=== PATIENT | female | born 1940 | race Caucasian/White ===

== ENCOUNTER 2017-12-04 07:46 | Inpatient (IN) | payer MEDICARE, MEDICAID ==
[2017-12-03 15:24] LABS: BASOPHILS # (AUTO) 0.1 X10'3 (0-0.2); BASOPHILS % (AUTO) 1.3 % (0-1); EOSINOPHILS # (AUTO) 0.2 X10'3 (0-0.9); EOSINOPHILS % (AUTO) 3.3 % (0-6); LYMPHOCYTES # (AUTO) 1.4 X10'3 (1.1-4.8); LYMPHOCYTES % (AUTO) 21.9 % (21-51); MEAN CORPUSCULAR HEMOGLOBIN 30.6 PG (27.0-31.0); MEAN CORPUSCULAR HGB CONC 32.7 % (33.0-36.5); MEAN CORPUSCULAR VOLUME 93.8 FL (78-98); MEAN PLATELET VOLUME 7.8 FL (7.4-10.4); MONOCYTES # (AUTO) 0.5 X10'3 (0-0.9); MONOCYTES % (AUTO) 7.8 % (2-12); NEUTROPHILS # (AUTO) 4.2 X10'3 (1.8-7.7); NEUTROPHILS % (AUTO) 65.7 % (42-75); PRE OP HEMATOCRIT 42.2 % (35.0-45.0); PRE OP HEMOGLOBIN 13.8 g/dL (12.0-16.0); PRE OP PLATELET COUNT 212 X10'3 (140-440); RED CELL DISTRIBUTION WIDTH 14.6 % (11.5-14.5)
[2017-12-03 15:40] LABS: ALBUMIN 3.7 G/DL (3.4-5.0); ALKALINE PHOSPHATASE 80 IU/L (46-116); BLOOD UREA NITROGEN 17 MG/DL (7-18); BUN/CREATININE RATIO 15.7 (6.6-38.0); CHLORIDE 107 MMOL/L (99-107); CREATININE 1.08 MG/DL (0.40-0.90); PRE OP ALT 18 U/L (30-65); PRE OP ANION GAP 9 (8-16); PRE OP AST 11 U/L (10-37); PRE OP BILIRUB, TOTAL 0.5 MG/DL (0.0-1.0); PRE OP GLUCOSE 121 MG/DL (70-104); PRE OP POTASSIUM 3.8 MMOL/L (3.4-5.1); PRE OP SODIUM 144 MMOL/L (135-145); TOTAL CARBON DIOXIDE 27.7 MMOL/L (24-32); TOTAL PROTEIN 7.3 G/DL (6.4-8.2); eGFR 49 ML/MIN
[2017-12-03 15:42] LABS: PRE OP PROTIME 10.8 SECONDS (9.0-12.0)
[2017-12-04] VITALS (22 sets, daily range): BP systolic 83–122; BP diastolic 52–74
[~2017-12-04] VITALS: Ht 154.9 cm; Wt 87.7 kg
[~2017-12-04 07:46] MED LIST: AMLO5TAB PO; CHOL100046 PO; IBUP-24 PO; LISI40TA4 PO; MAGN400C PO; METF-436 PO; TOPI50TA PO; acetaminophen 325mg tablet PO ONE; cefazolin/dext.iso 2gm/100 ML IV ONE; famotidine 20mg tablet PO ONE; gabapentin 300mg capsule PO ONE; metoclopramide 5 mg/ml inj IV ONE; oxyCODONE SR 10mg (sust. release) tab PO ONE; ringers solution, lacted 1,000 ML IV SCH; tranexamic acid inj. 1,000 MG in normal saline 100ml IV soln 90 ML IV ONE; vancomycin inj 1,500 MG in normal saline 300ml IV soln IV ONE
[2017-12-04] MEDS ORDERED: vancomycin 1,000mg inj ONE (08:00)
[2017-12-04] MEDS ORDERED: ceFAZolin 1000mg inj ONE ×2 (08:00→10:23)
[2017-12-04] MEDS ORDERED: LIDOcaine 1% (10mg/ml) 2ml vial ONE (08:53)
[2017-12-04] MEDS ORDERED: tetracaine 1% (10mg/ml) pres. free inj. ONE (09:21)
[2017-12-04] MEDS ORDERED: morphine /PF 1mg/ml 10ml inj. ONE (09:26)
[2017-12-04] MEDS ORDERED: MIDAZolam 1mg/ml 10ml vial ONE (09:26)
[2017-12-04] MEDS ORDERED: fentaNYL/PF 50MCG/1 ML 2ML syringe ONE (09:26)
[2017-12-04] MEDS ORDERED: ROPIVAcaine inj 200 MG, epiNEPHrine inj 0.6 MG, morphine 10mg/ml inj. 5 MG in normal sa... IU ONE (09:45)
[2017-12-04] MEDS ORDERED: ePHEDrine 50MG/ML INJ. ONE (10:43)
[2017-12-04] MEDS ORDERED: ringers solution, lacted 1,000 ML IV SCH (11:22)
[2017-12-04] MEDS ORDERED: ondansetron/PF 4mg/2ml inj IV PRN ×3 (11:25→13:15)
[2017-12-04] MEDS ORDERED: enalaprilat dihydrate 2.5mg/2ml vial IV PRN (11:25)
[2017-12-04] MEDS ORDERED: hydrALAZINE 20mg/ml inj. IV PRN (11:25)
[2017-12-04] MEDS ORDERED: morphine 4 MG/ML inj SYRINge IV PRN ×2 (11:25)
[2017-12-04] MEDS ORDERED: diphenhydrAMINE 50 mg/ml inj IV PRN (11:25)
[2017-12-04] MEDS ORDERED: fentaNYL/PF 50MCG/1 ML 2ML syringe IV PRN ×2 (11:25)
[2017-12-04] MEDS ORDERED: albumin (Human) 5% 250ml 250 ML IV ONE ×2 (11:32→12:45)
[2017-12-04] MEDS ORDERED: acetaminophen 325mg tablet PO PRN (13:15)
[2017-12-04] MEDS ORDERED: HYDROmorphone 1 mg/ml syringe IV PRN ×2 (13:15)
[2017-12-04] MEDS ORDERED: diphenhydrAMINE 25mg capsule PO PRN ×2 (13:15)
[2017-12-04] MEDS ORDERED: oxyCODONE IR 5mg (immed. release) tablet PO PRN (13:15)
[2017-12-04] MEDS ORDERED: bisacodyl 10mg suppository rectal RC PRN (13:15)
[2017-12-04] MEDS ORDERED: magnesium hydroxide 30ml (MOM) UD suspension PO PRN (13:15)
[2017-12-04] MEDS: acetaminophen 325mg tablet PO SCH ×2 (16:18→21:23)
[2017-12-04] MEDS: ceFAZolin 1GM/D5W- ADD-VANTAGE 50 ML IV SCH (16:22)
[2017-12-04] MEDS: potassium cl 20mEq in 1/2 NS 1,000 ML IV SCH ×2 (16:47→21:14)
[2017-12-04] MEDS ORDERED: vancomycin/NS 1 GM ADD-VANTAGE 250 ML IV SCH (20:00)
[2017-12-04] MEDS ORDERED: TOPIRAMATE PO SCH (20:00)
[2017-12-04] MEDS ORDERED: non-formulary drug (Amlodipine Besylate 1 TABLET) PO SCH (21:00)
[2017-12-04] MEDS: amLODIPine 5mg tablet PO SCH (21:00)
[2017-12-04] MEDS: lisinopril 20mg tablet PO SCH (21:00)
[2017-12-04] MEDS ORDERED: non-formulary drug (Lisinopril* 1 TAB) PO SCH (21:00)
[2017-12-04] MEDS: topiramate 25mg tablet PO SCH (21:22)
[2017-12-04] MEDS: sennosides 8.6mg tablet PO SCH (21:24)
[2017-12-04] MEDS: gabapentin 300mg capsule PO SCH (21:24)
[2017-12-05] MEDS: ceFAZolin 1GM/D5W- ADD-VANTAGE 50 ML IV SCH (00:13)
[2017-12-05 02:30] VITALS: BP 101/60
[2017-12-05] MEDS: acetaminophen 325mg tablet PO SCH ×4 (02:38→20:01)
[2017-12-05] MEDS: potassium cl 20mEq in 1/2 NS 1,000 ML IV SCH ×3 (02:45→21:16)
[2017-12-05 06:00] VITALS: BP 91/52
[2017-12-05 06:32] LABS: BASOPHILS % (AUTO) 0.4 % (0-1); EOSINOPHILS % (AUTO) 0.6 % (0-6); HEMATOCRIT 26.1 % (35.0-45.0); HEMOGLOBIN 8.6 g/dl (12.0-16.0); LYMPHOCYTES # (AUTO) 0.7 X10'3 (1.1-4.8); LYMPHOCYTES % (AUTO) 13.8 % (21-51); MEAN CORPUSCULAR HEMOGLOBIN 30.8 PG (27.0-31.0); MEAN CORPUSCULAR HGB CONC 32.8 % (33.0-36.5); MEAN CORPUSCULAR VOLUME 93.8 FL (78-98); MEAN PLATELET VOLUME 7.9 FL (7.4-10.4); MONOCYTES # (AUTO) 0.5 X10'3 (0-0.9); NEUTROPHILS # (AUTO) 3.8 X10'3 (1.8-7.7); NEUTROPHILS % (AUTO) 76.2 % (42-75); PLATELET COUNT 135 X10'3 (140-440); RED BLOOD COUNT 2.79 X10'6 (4.20-5.60); RED CELL DISTRIBUTION WIDTH 14.7 % (11.5-14.5); WHITE BLOOD COUNT 5.1 X10'3 (4.5-11.0)
[2017-12-05 06:46] LABS: ANION GAP 6 (8-16); CHLORIDE 107 MMOL/L (99-107); POTASSIUM 4.2 MMOL/L (3.5-5.1); SODIUM 139 MMOL/L (135-145)
[2017-12-05] MEDS ORDERED: non-formulary drug (Magnesium Oxide (Magnesium) 1 CAP) PO SCH (08:00)
[2017-12-05] MEDS: gabapentin 300mg capsule PO SCH ×3 (08:08→20:01)
[2017-12-05] MEDS: magnesium oxide 400mg tablet PO SCH (08:08)
[2017-12-05] MEDS: enoxaparin 40mg/0.4ml syringe SQ SCH (08:08)
[2017-12-05] MEDS: topiramate 25mg tablet PO SCH ×2 (08:09→20:00)
[2017-12-05] MEDS: metFORMIN 500mg tablet PO SCH (08:09)
[2017-12-05] MEDS: vitamin D (cholecalciferol) 1,000 unit tablet PO SCH (08:09)
[2017-12-05 18:00] VITALS: BP 97/37
[2017-12-05] MEDS: oxyCODONE IR 5mg (immed. release) tablet PO PRN (20:00)
[2017-12-05] MEDS: sennosides 8.6mg tablet PO SCH (20:01)
[2017-12-05] MEDS: amLODIPine 5mg tablet PO SCH (21:00)
[2017-12-05] MEDS: lisinopril 20mg tablet PO SCH (21:00)
[2017-12-05 22:00] VITALS: BP 94/49
[2017-12-06 02:00] VITALS: BP 109/64
[2017-12-06] MEDS: acetaminophen 325mg tablet PO SCH ×2 (02:00→09:26)
[2017-12-06 05:00] VITALS: BP 98/50
[2017-12-06] MEDS: oxyCODONE IR 5mg (immed. release) tablet PO PRN ×3 (05:09→22:04)
[2017-12-06] MEDS: potassium cl 20mEq in 1/2 NS 1,000 ML IV SCH (05:14)
[2017-12-06] MEDS: topiramate 25mg tablet PO SCH ×2 (08:00→19:51)
[2017-12-06 08:22] LABS: BASOPHILS % (AUTO) 0.4 % (0-1); EOSINOPHILS # (AUTO) 0.1 X10'3 (0-0.9); EOSINOPHILS % (AUTO) 1.4 % (0-6); HEMATOCRIT 27.3 % (35.0-45.0); LYMPHOCYTES # (AUTO) 0.7 X10'3 (1.1-4.8); LYMPHOCYTES % (AUTO) 7.6 % (21-51); MEAN CORPUSCULAR VOLUME 93.9 FL (78-98); MEAN PLATELET VOLUME 7.8 FL (7.4-10.4); MONOCYTES # (AUTO) 0.9 X10'3 (0-0.9); NEUTROPHILS # (AUTO) 7.2 X10'3 (1.8-7.7); NEUTROPHILS % (AUTO) 80.6 % (42-75); PLATELET COUNT 131 X10'3 (140-440); RED CELL DISTRIBUTION WIDTH 14.6 % (11.5-14.5); WHITE BLOOD COUNT 8.9 X10'3 (4.5-11.0)
[2017-12-06] MEDS: gabapentin 300mg capsule PO SCH ×3 (09:24→19:51)
[2017-12-06] MEDS: magnesium oxide 400mg tablet PO SCH (09:24)
[2017-12-06] MEDS: metFORMIN 500mg tablet PO SCH (09:24)
[2017-12-06] MEDS: enoxaparin 40mg/0.4ml syringe SQ SCH (09:27)
[2017-12-06] MEDS: vitamin D (cholecalciferol) 1,000 unit tablet PO SCH (09:27)
[2017-12-06 10:00] VITALS: BP 103/52
[2017-12-06] MEDS ORDERED: acetaminophen 325mg tablet PO PRN (13:15)
[2017-12-06 18:00] VITALS: BP 109/56
[2017-12-06] MEDS: lisinopril 20mg tablet PO SCH (19:50)
[2017-12-06] MEDS: sennosides 8.6mg tablet PO SCH (19:51)
[2017-12-06] MEDS: amLODIPine 5mg tablet PO SCH (19:51)
[2017-12-06 22:00] VITALS: BP 118/60
[2017-12-07] MEDS: oxyCODONE IR 5mg (immed. release) tablet PO PRN (05:36)
[2017-12-07 06:33] LABS: BASOPHILS % (AUTO) 0.2 % (0-1); EOSINOPHILS # (AUTO) 0.1 X10'3 (0-0.9); EOSINOPHILS % (AUTO) 1.9 % (0-6); HEMATOCRIT 25.5 % (35.0-45.0); HEMOGLOBIN 8.5 g/dl (12.0-16.0); LYMPHOCYTES # (AUTO) 1.1 X10'3 (1.1-4.8); LYMPHOCYTES % (AUTO) 13.5 % (21-51); MEAN CORPUSCULAR HEMOGLOBIN 31.2 PG (27.0-31.0); MEAN CORPUSCULAR HGB CONC 33.2 % (33.0-36.5); MEAN CORPUSCULAR VOLUME 93.8 FL (78-98); MEAN PLATELET VOLUME 8.1 FL (7.4-10.4); MONOCYTES # (AUTO) 0.9 X10'3 (0-0.9); MONOCYTES % (AUTO) 11.4 % (2-12); NEUTROPHILS # (AUTO) 5.8 X10'3 (1.8-7.7); PLATELET COUNT 130 X10'3 (140-440); RED BLOOD COUNT 2.72 X10'6 (4.20-5.60); RED CELL DISTRIBUTION WIDTH 14.6 % (11.5-14.5); WHITE BLOOD COUNT 7.9 X10'3 (4.5-11.0)
[2017-12-07] MEDS: metFORMIN 500mg tablet PO SCH (07:35)
[2017-12-07] MEDS: magnesium oxide 400mg tablet PO SCH (07:35)
[2017-12-07] MEDS: vitamin D (cholecalciferol) 1,000 unit tablet PO SCH (07:35)
[2017-12-07] MEDS: gabapentin 300mg capsule PO SCH ×2 (07:35→13:13)
[2017-12-07] MEDS: topiramate 25mg tablet PO SCH (07:35)
[2017-12-07] MEDS: enoxaparin 40mg/0.4ml syringe SQ SCH (07:36)
== END 2017-12-07 16:07 | DRG 467 ==
LOC: PAS IN 07:46 → EDSTATUS 09:30 → PCU 3S 13:14 → ORTHO 4S 12-05 10:19
PROVIDERS: ADMIT Orthopaedic Surgery; ATTEND Orthopaedic Surgery
PROC: 0SP90JZ Removal of Synthetic Substitute from Right Hip Joint, Open Approach (ICD-10-PCS; 2017-12-04)
PROC: 0SR906Z Replacement of Right Hip Joint with Oxidized Zirconium on Polyethylene Synthetic Substitute, Open Approach (ICD-10-PCS; principal; 2017-12-04 10:06)
DX: T84.84XA Pain due to internal orthopedic prosthetic devices, implants and grafts, initial encounter (principal); D62 Acute posthemorrhagic anemia; I12.9 Hypertensive chronic kidney disease with stage 1 through stage 4 chronic kidney disease, or unspecified chronic kidney disease; J45.909 Unspecified asthma, uncomplicated; E11.22 Type 2 diabetes mellitus with diabetic chronic kidney disease; Y83.1 Surgical operation with implant of artificial internal device as the cause of abnormal reaction of the patient, or of later complication, without mention of misadventure at the time of the procedure; I25.10 Atherosclerotic heart disease of native coronary artery without angina pectoris; G47.33 Obstructive sleep apnea (adult) (pediatric); R29.6 Repeated falls; E78.5 Hyperlipidemia, unspecified; I95.81 Postprocedural hypotension; N18.3 Chronic kidney disease, stage 3 (moderate); Z88.2 Allergy status to sulfonamides; Z79.899 Other long term (current) drug therapy; Z86.73 Personal history of transient ischemic attack (TIA), and cerebral infarction without residual deficits
CPT/HCPCS: 36415; 72170; 80051; 80053; 82948; 85025; 85610; 85730; 86885; 86900; 86901; 87070; 93005; 97110; 97116; 97162; 97530; A6449; A7000; C1758; C1776; J0171; J0690; J1170; J1650; J2250; J2270; J2274; J2405; J2765; J2795; J3010; J3370; J3490; J7030; J7120; P9045

== ENCOUNTER 2020-10-11 11:45 | Emergency (ER) | payer BC, MEDICAID ==
[~2020-10-11] VITALS: Ht 154.9 cm; Wt 86.4 kg
[~2020-10-11 11:45] MED LIST changes: +LISI40TA13 PO; -LISI40TA4 PO; -acetaminophen 325mg tablet PO ONE; -cefazolin/dext.iso 2gm/100 ML IV ONE; -famotidine 20mg tablet PO ONE; -gabapentin 300mg capsule PO ONE; -metoclopramide 5 mg/ml inj IV ONE; -oxyCODONE SR 10mg (sust. release) tab PO ONE; -ringers solution, lacted 1,000 ML IV SCH; -tranexamic acid inj. 1,000 MG in normal saline 100ml IV soln 90 ML IV ONE; -vancomycin inj 1,500 MG in normal saline 300ml IV soln IV ONE
[2020-10-11 13:22] LABS: BASOPHILS % (AUTO) 0.9 % (0-1); EOSINOPHILS # (AUTO) 0.2 X10'3 (0-0.9); EOSINOPHILS % (AUTO) 4.1 % (0-6); HEMATOCRIT 43.7 % (35.0-45.0); HEMOGLOBIN 14.1 g/dl (12.0-16.0); LYMPHOCYTES # (AUTO) 1.3 X10'3 (1.1-4.8); LYMPHOCYTES % (AUTO) 25.8 % (21-51); MEAN CORPUSCULAR HEMOGLOBIN 31.5 PG (27.0-31.0); MEAN CORPUSCULAR HGB CONC 32.4 g/dL (33.0-36.5); MEAN CORPUSCULAR VOLUME 97.1 FL (78-98); MEAN PLATELET VOLUME 7.7 FL (7.4-10.4); MONOCYTES # (AUTO) 0.5 X10'3 (0-0.9); MONOCYTES % (AUTO) 8.9 % (2-12); NEUTROPHILS # (AUTO) 3.1 X10'3 (1.8-7.7); NEUTROPHILS % (AUTO) 60.3 % (42-75); PLATELET COUNT 182 X10'3 (140-440); RED CELL DISTRIBUTION WIDTH 14.6 % (11.5-14.5); WHITE BLOOD COUNT 5.1 X10'3 (4.5-11.0)
[2020-10-11 13:41] LABS: ALANINE AMINOTRANSFERASE 27 U/L (12-78); ALBUMIN 3.9 G/DL (3.4-5.0); ALBUMIN/GLOBULIN RATIO 1.1 (1.1-1.5); ALKALINE PHOSPHATASE 69 IU/L (46-116); ANION GAP 9 (8-16); ASPARTATE AMINO TRANSFERASE 18 U/L (10-37); BILIRUBIN,TOTAL 0.4 MG/DL (0.1-1.0); BLOOD UREA NITROGEN 21 MG/DL (7-18); BUN/CREATININE RATIO 21.9 (6.6-38.0); CALCIUM 8.7 MG/DL (8.5-10.1); CHLORIDE 109 MMOL/L (99-107); CREATININE 0.96 MG/DL (0.40-0.90); GLUCOSE 93 MG/DL (70-104); POTASSIUM 5.2 MMOL/L (3.5-5.1); SODIUM 145 MMOL/L (135-145); TOTAL CARBON DIOXIDE 27.2 MMOL/L (24-32); TOTAL PROTEIN 7.4 G/DL (6.4-8.2); eGFR 56 ML/MIN
[2020-10-11 14:40] LABS: PARTIAL THROMBOPLASTIN TIME 31 SECONDS (22-32)
--- NOTE | 2020-10-11 20:11 | NUR ---
PT CALLED FOR NEW SET OF VS, IN THE RESTROOM
--- NOTE | 2020-10-11 21:33 | NUR ---
pt roomed in bed 1. assumed care of pt. pt denies any CP or SOB at this time
[2020-10-11 22:12] VITALS: BP 138/74
== END 2020-10-11 22:13 | disposition home or self-care (01) ==
LOC: ER 11:46
DX: R07.89 Other chest pain (principal); I25.10 Atherosclerotic heart disease of native coronary artery without angina pectoris; E11.9 Type 2 diabetes mellitus without complications; I25.2 Old myocardial infarction; Z95.0 Presence of cardiac pacemaker; Z86.73 Personal history of transient ischemic attack (TIA), and cerebral infarction without residual deficits; Z88.2 Allergy status to sulfonamides; Z79.899 Other long term (current) drug therapy
CPT/HCPCS: 36415; 71045; 80053; 83880; 84484; 85025; 85610; 85730; 93005; 99285

== ENCOUNTER 2022-03-05 19:24 | Emergency (ER) | payer BC, MEDICAID ==
[~2022-03-05] VITALS: Ht 154.9 cm; Wt 90.9 kg
[2022-03-05 19:39] VITALS: BP 142/50
[2022-03-05] MEDS ORDERED: ORPH100T2 PO (21:35)
[2022-03-05] MEDS ORDERED: HYDR-3965 PO (21:35)
[2022-03-05] MEDS ORDERED: HYDROcodone/acetaminophen 10/325mg tab PO ONE (21:40)
== END 2022-03-05 22:17 | disposition home or self-care (01) ==
LOC: ER 19:24
DX: S32.028A Other fracture of second lumbar vertebra, initial encounter for closed fracture (principal); I25.10 Atherosclerotic heart disease of native coronary artery without angina pectoris; E11.9 Type 2 diabetes mellitus without complications; G89.29 Other chronic pain; R51.9 Headache, unspecified; Z86.73 Personal history of transient ischemic attack (TIA), and cerebral infarction without residual deficits; Z88.2 Allergy status to sulfonamides; Z79.84 Long term (current) use of oral hypoglycemic drugs; Z79.899 Other long term (current) drug therapy; W18.39XA Other fall on same level, initial encounter; Y93.89 Activity, other specified; Y92.89 Other specified places as the place of occurrence of the external cause; Y99.8 Other external cause status
CPT/HCPCS: 70450; 72131; 99284

== ENCOUNTER 2024-04-23 11:34 | Emergency (ER) | payer BC, MEDICAID ==
[~2024-04-23] VITALS: Ht 154.9 cm; Wt 69.2 kg
[~2024-04-23 11:34] MED LIST changes: +ALBU17AE26 IH; +ASPI81TA53 PO; +ATOR20TA66 PO; +CLOP75TA34 PO; +CYAN250014 PO; +DOCU-148 PO; +HYDR-3965 PO; -IBUP-24 PO; +LISI20TA28 PO; -LISI40TA13 PO; +LOSA1TAB41 PO; +MELA3TAB41 PO; +METO25TA6 PO; +ONDA-103 PO; +TRAZ-251 PO
[2024-04-23 12:18] LABS: BASOPHILS # (AUTO) 0.1 X10'3 (0-0.2); BASOPHILS % (AUTO) 1.4 % (0-1); EOSINOPHILS # (AUTO) 0.1 X10'3 (0-0.9); EOSINOPHILS % (AUTO) 3.7 % (0-6); HEMATOCRIT 38.6 % (35.0-45.0); HEMOGLOBIN 12.7 g/dl (12.0-16.0); LYMPHOCYTES % (AUTO) 25.1 % (21-51); MEAN CORPUSCULAR HEMOGLOBIN 31.8 PG (27.0-31.0); MEAN CORPUSCULAR HGB CONC 32.9 g/dL (33.0-36.5); MEAN CORPUSCULAR VOLUME 96.6 FL (78-98); MEAN PLATELET VOLUME 7.6 FL (7.4-10.4); MONOCYTES # (AUTO) 0.4 X10'3 (0-0.9); MONOCYTES % (AUTO) 11.5 % (2-12); NEUTROPHILS # (AUTO) 2.2 X10'3 (1.8-7.7); NEUTROPHILS % (AUTO) 58.3 % (42-75); PLATELET COUNT 179 X10'3 (140-440); RED BLOOD COUNT 3.99 X10'6 (4.20-5.60); RED CELL DISTRIBUTION WIDTH 15.4 % (11.5-14.5); WHITE BLOOD COUNT 3.8 X10'3 (4.5-11.0)
[2024-04-23 12:32] LABS: ALANINE AMINOTRANSFERASE 25 U/L (12-78); ALBUMIN 3.7 G/DL (3.4-5.0); ALBUMIN/GLOBULIN RATIO 1.2 (1.1-1.5); ALKALINE PHOSPHATASE 52 IU/L (46-116); ANION GAP 7 (8-16); ASPARTATE AMINO TRANSFERASE 13 U/L (10-37); BILIRUBIN,TOTAL 0.5 MG/DL (0.1-1.0); BLOOD UREA NITROGEN 18 MG/DL (7-18); CALCIUM 8.9 MG/DL (8.5-10.1); CHLORIDE 107 MMOL/L (99-107); GLUCOSE 113 MG/DL (70-104); SODIUM 142 MMOL/L (135-145); TOTAL CARBON DIOXIDE 28.1 MMOL/L (24-32); TOTAL PROTEIN 6.8 G/DL (6.4-8.2); eCRCL 26 ML/MIN; eGFR 43 ML/MIN
[2024-04-23 12:41] LABS: PRO BRAIN NATRIURETIC PEPTIDE 122 PG/ML (0-450)
[2024-04-23 13:01] LABS: C-REACTIVE PROTEIN < 0.05 MG/DL (0.0-0.5)
[2024-04-23] MEDS ORDERED: iohexol 350MG/ML 100ml bottle IV ONE (14:31)
[2024-04-23 15:19] VITALS: TEMP 97.3
[2024-04-23 17:00] VITALS: BP 116/76; PULSE 60; RESP 12; O2SAT 97
== END 2024-04-23 16:45 | disposition home or self-care (01) ==
LOC: ER 11:35
DX: R20.2 Paresthesia of skin (principal); E11.9 Type 2 diabetes mellitus without complications; I25.10 Atherosclerotic heart disease of native coronary artery without angina pectoris; Z86.73 Personal history of transient ischemic attack (TIA), and cerebral infarction without residual deficits; Z88.2 Allergy status to sulfonamides
CPT/HCPCS: 36415; 70450; 70496; 71045; 80053; 82948; 83880; 84484; 85025; 85651; 86140; 93005; 99285; Q9967

== ENCOUNTER 2024-06-25 15:40 | Emergency (ER) | payer BC, MEDICAID ==
[~2024-06-25] VITALS: Ht 152.4 cm; Wt 77.3 kg
[2024-06-25 16:25] LABS: BASOPHILS # (AUTO) 0.1 X10'3 (0-0.2); EOSINOPHILS # (AUTO) 0.1 X10'3 (0-0.9); EOSINOPHILS % (AUTO) 1.3 % (0-6); HEMATOCRIT 37.9 % (35.0-45.0); HEMOGLOBIN 12.7 g/dl (12.0-16.0); LYMPHOCYTES # (AUTO) 1.2 X10'3 (1.1-4.8); LYMPHOCYTES % (AUTO) 15.1 % (21-51); MEAN CORPUSCULAR HEMOGLOBIN 32.1 PG (27.0-31.0); MEAN CORPUSCULAR HGB CONC 33.6 g/dL (33.0-36.5); MEAN CORPUSCULAR VOLUME 95.7 FL (78-98); MEAN PLATELET VOLUME 7.7 FL (7.4-10.4); MONOCYTES # (AUTO) 0.9 X10'3 (0-0.9); MONOCYTES % (AUTO) 12.3 % (2-12); NEUTROPHILS # (AUTO) 5.3 X10'3 (1.8-7.7); NEUTROPHILS % (AUTO) 70.3 % (42-75); PLATELET COUNT 180 X10'3 (140-440); RED BLOOD COUNT 3.96 X10'6 (4.20-5.60); RED CELL DISTRIBUTION WIDTH 14.5 % (11.5-14.5); WHITE BLOOD COUNT 7.6 X10'3 (4.5-11.0)
[2024-06-25 16:27] LABS: ALBUMIN 3.4 G/DL (3.4-5.0); ANION GAP 11 (8-16); BLOOD UREA NITROGEN 22 MG/DL (7-18); BUN/CREATININE RATIO 15.3 (10.0-20.0); CALCIUM 8.7 MG/DL (8.5-10.1); CHLORIDE 106 MMOL/L (99-107); CREATININE 1.44 MG/DL (0.40-0.90); GLUCOSE 96 MG/DL (70-104); POTASSIUM 3.8 MMOL/L (3.5-5.1); SODIUM 143 MMOL/L (135-145); TOTAL CARBON DIOXIDE 26.5 MMOL/L (24-32); eCRCL 21 ML/MIN; eGFR 35 ML/MIN
[2024-06-25 17:32] VITALS: BP 99/42; PULSE 60; O2SAT 95
--- NOTE | 2024-06-25 18:25 | Physician Documentation ---
History of Present Illness ~ Chief Complaint: Bite-insect Stated Complaint: LOW BLOOD PRESSURE SPIDER BITE Time Seen by MD: 17:45 Primary Medical Doctor: DR. BROCK WALL HPI Patient is seen today with complaints of an infection of her left forearm. Solo smith was seen today by primary a or urgent care and they were concerned about her low blood pressure and that she might be septic which is why they came here. Patient is seen today with her daughter. They state the infection started a few days ago and has really blown up the last day or two. Patient denies any fevers or chills or nausea, vomiting, diarrhea, chest pain, shortness of breath, abdominal pain. Tetanus Within 5 Years: No Medication Reconciliation Allergies: Coded Allergies: Sulfa (Sulfonamide Antibiotics) (Verified Allergy, Unknown, HIVES, 01/26/24) Scheduled Amlodipine Besylate (Amlodipine Besylate), 1 TABLET PO DAILY, (Reported) Aspirin (Children's Aspirin), 81 MG PO DAILY@0830 Atorvastatin Calcium (Atorvastatin Calcium), 40 MG PO DAILY Cholecalciferol (Vitamin D3) (Vitamin D), 1 CAP PO DAILY, (Reported) Clopidogrel Bisulfate (Clopidogrel), 75 MG PO DAILY Cyanocobalamin (Vitamin B-12) (Vitamin B12), 500 MCG PO DAILY, (Reported) Docusate Sodium (Colace), 1 CAP PO Q12H Lisinopril (Lisinopril), 1 TAB PO DAILY, (Reported) Losartan/Hydrochlorothiazide (Losartan-Hctz 100-12.5 Mg Tab), 1 TAB PO DAILY, (Reported) Magnesium Oxide (Magnesium), 400 MG PO DAILY, (Reported) Metformin Hcl (Metformin Hcl), 1 TAB PO DAILY, (Reported) Metoprolol Tartrate (Metoprolol Tartrate), 1 TAB PO BID, (Reported) Topiramate (Topamax), 0.5 TAB PO BID, (Reported) Scheduled PRN Albuterol (Albuterol), 2 PUFFS IH Q4H PRN for SOB or wheezing, (Reported) Hydrocodone Bit/Acetaminophen 5/325 MG ([place] 5/325 MG), 1 TAB PO Q12H PRN PRN for pain, (Reported) Melatonin (Melatonin), 1 TAB PO HS PRN for sleep, (Reported) Ondansetron HCl (Ondansetron HCl), 1 TAB PO DAILY PRN for nausea/vomiting, (Reported) Trazodone HCl (Trazodone HCl), 1 TAB PO HS PRN for sleep, (Reported) Past Medical History Past Medical History: CVA/TIA/Stroke, Coronary Artery Disease, Diabetes, Chronic Back Pain Past Surgical History: other Drug Use: none Lives In: Home Review of Systems Constitutional: Denies: chills, fever, weakness Eyes: Denies: pain, blurred vision ENT: Denies: ear pain, nose pain, throat pain, mouth pain Respiratory: Denies: cough, shortness of breath Cardiovascular: Denies: chest pain, palpitations Gastrointestinal: Denies: abdominal pain, nausea, vomiting Genitourinary: Denies: burning, dysuria Female Genitalia: Denies: vaginal discharge, pelvic pain Neurological: Denies: headache, dizziness Musculoskeletal: Denies: pain, swelling Integumentary: Denies: rash, lesions Allergic/Immunologic: Denies: hives, itching Hematologic/Lymphatic: Denies: no symptoms reported Psychiatric: Denies: depression, anxiety Physical Exam Vital Signs: Temperature: 98.7, Source: Oral, Heart Rate: 60, Respiratory Rate: 16, BP: 99/42, Pulse Oximetry: 95, Weight: 77.300 Oxygen Flow Rate: 0 Physical Exam General: Awake and Alert, no acute distress. HEENT: Conjunctiva pink, Sclera clear, Mucus Membranes moist. Neck: Supple without masses and tenderness. Resp: Unlabored. Lungs clear to auscultation bilaterally. Heart: Regular Rate and rhythm, normal S1 and S2 without murmur, rub or gallop. Musculoskeletal: Patient on exam has carbuncle approximately 3 cm in diameter with surrounding erythema of the ulnar aspect of the midshaft of the left forearm. Patient is neurovascularly intact distally. Motor function intact distally. There is purulent drainage present. Extremities: No cyanosis,clubbing or edema. Skin: Warm and Dry. Progress Results/Orders Results/Orders Vital Signs 06/25/24 06/25/24 15:41 17:32 Temp 99.0 98.7 Pulse 60 60 Resp 16 16 B/P (MAP) 91/42 99/42 (61) Pulse Ox 96 95 O2 Flow Rate 0 0 Laboratory Tests Test 06/25/24 15:56 White Blood Count 7.6 Red Blood Count 3.96 L Hemoglobin 12.7 Hematocrit 37.9 Mean Corpuscular Volume 95.7 Mean Corpuscular Hemoglobin 32.1 H Mean Corpuscular Hemoglobin Concent 33.6 Red Cell Distribution Width 14.5 Platelet Count 180 Mean Platelet Volume 7.7 Neutrophils (%) (Auto) 70.3 Lymphocytes (%) (Auto) 15.1 L Monocytes (%) (Auto) 12.3 H Eosinophils (%) (Auto) 1.3 Basophils (%) (Auto) 1.0 Neutrophils # (Auto) 5.3 Lymphocytes # (Auto) 1.2 Monocytes # (Auto) 0.9 Eosinophils # (Auto) 0.1 Basophils # (Auto) 0.1 CBC Comment Sodium Level 143 Potassium Level 3.8 Chloride Level 106 Carbon Dioxide Level 26.5 Anion Gap 11 Blood Urea Nitrogen 22 H Creatinine 1.44 H Estimated GFR/1.73 m2 35 BUN/Creatinine Ratio 15.3 Glucose Level 96 Lactic Acid Level 1.8 Calcium Level 8.7 Albumin 3.4 Procalcitonin < 0.05 Chemistry Comments Microbiology Date/Time Source Procedure Growth Status 06/25/24 15:59 Blood Hand Right Blood Culture - Preliminary NEGATIVE (LESS THAN 24 HOURS) Resulted Medical Decision Making Findings Patient is seen today with complaints of an infection of her left forearm. Patient was seen today by primary a or urgent care and they were concerned about her low blood pressure and that she might be septic which is why they came here. Patient is seen today with her daughter. They state the infection started a few days ago and has really blown up the last day or two. Patient denies any fevers or chills or nausea, vomiting, diarrhea, chest pain, shortness of breath, abdominal pain. Patient's labs returned largely unremarkable without any leukocytosis, negative procalcitonin, negative lactic acid. Patient was started on oral antibiotics today clindamycin 300 mg one tab 3 times a day for 10 days. Patient will follow up with primary care in 2-5 days if no better as needed sooner. Patient will perform warm compress two to 3 times a day and will return to ED with any worsening, concerning or changing symptoms. He will perform daily dressing changes. Departure Disposition: HOME / SELF CARE / HOMELESS Impression: Primary Impression: Carbuncle Condition: Improved Discharge Instructions: Abscess, Care After Additional Instructions: Patient's labs returned largely unremarkable without any leukocytosis, negative procalcitonin, negative lactic acid. Patient was started on oral antibiotics today clindamycin 300 mg one tab 3 times a day for 10 days. Patient will follow up with primary care in 2-5 days if no better as needed sooner. Patient will perform warm compress two to 3 times a day and will return to ED with any worsening, concerning or changing symptoms. He will perform daily dressing changes. Referrals: NO PRIMARY CARE PROVIDER (PCP) Prescriptions Clindamycin HCl (Clindamycin HCl) 300 Mg Capsule 1 CAP PO Q8H for 10 Days, #30 CAP Prov: ANGELIA RICCI PAC 06/25/24 Signature Scribe Signature: No scribe Attestation: no scribe ANGELIA RICCI PAC June 25, 2024 18:25
[2024-06-25] MEDS ORDERED: CLIN300C71 PO (18:29)
[2024-06-25 18:30] VITALS: TEMP 98.7
[2024-06-25] MEDS: clindamycin 150mg capsule PO STA (18:44)
[2024-06-25 18:45] VITALS: RESP 16
[2024-06-25] MEDS: HYDROcodone/acetaminophen 5mg/325mg tablet PO STA (18:45)
== END 2024-06-25 18:48 | disposition home or self-care (01) ==
LOC: ER 15:40
DX: L02.434 Carbuncle of left upper limb (principal); E11.9 Type 2 diabetes mellitus without complications; I25.10 Atherosclerotic heart disease of native coronary artery without angina pectoris; Z86.73 Personal history of transient ischemic attack (TIA), and cerebral infarction without residual deficits; Z88.2 Allergy status to sulfonamides; Z79.82 Long term (current) use of aspirin
CPT/HCPCS: 36415; 80048; 83605; 84145; 85025; 87040; 99284

== ENCOUNTER 2024-06-30 11:27 | Emergency (ER) | payer BC, MEDICAID ==
[~2024-06-30] VITALS: Ht 152.4 cm; Wt 80.5 kg
[~2024-06-30 11:27] MED LIST changes: +CLIN300C71 PO
[2024-06-30 11:30] VITALS: TEMP 97.1
--- NOTE | 2024-06-30 12:03 | RADIOLOGY REPORT ---
EXAM: CT CT HEAD HISTORY: head strike, blood thinners COMPARISON: CT CTA HEAD on DOS: 04/23/24, CT CT HEAD on DOS: 04/23/24, CT CT HEAD on DOS: 01/27/24, MR MRI HEAD on DOS: 11/15/22, CT CT STROKE ALERT on DOS: 11/15/22 TECHNIQUE: Noncontrast axial CT images of the head were performed. Sagittal and coronal reformatted i mages were obtained. This CT exam was performed using 1 or more of the following dose reduction techn iques: Automated exposure control, adjustment of the mA and/or kv according to patient size, or the u se of iterative reconstruction techniques. Radiation Dose: CTDI volume is 58.89 mGy. Dose-length product is 1019.25 mGy*cm FINDINGS: There is mild global brain atrophy. There is moderate decreased attenuation in the periventricular an d cerebral white matter. No intracranial hemorrhage, mass, midline shift, hydrocephalus, or evidence of acute large vessel infarct. There are atherosclerotic calcifications of the cavernous carotid susanna hardik, basilar artery, and terminal vertebral arteries. The partially-visualized paranasal sinuses are clear. The bilateral mastoid air cells and middle ear spaces are clear. No cranial fracture or scalp edema. IMPRESSION: Global brain atrophy and chronic ischemic changes without evidence of acute intracranial process.
--- NOTE | 2024-06-30 12:56 | Physician Documentation ---
History of Present Illness ~ Chief Complaint: Trauma Level 3 Stated Complaint: FALL/HIT HEAD/BLOOD THINNER/NO LOC Time Seen by MD: 11:33 Primary Medical Doctor: DR. BROCK WALL HPI 83 year old female fell onto her right side and may have struck her head. She is on blood thinners. She was otherwise immediately ambulatory with her walker and complains of no hip, leg, back, chest, or arm pain. Tetanus within 5 years?: No Medication Reconciliation Allergies: Coded Allergies: Sulfa (Sulfonamide Antibiotics) (Verified Allergy, Unknown, HIVES, 06/30/24) Scheduled Amlodipine Besylate (Amlodipine Besylate), 1 TABLET PO DAILY, (Reported) Aspirin (Children's Aspirin), 81 MG PO DAILY@0830 Atorvastatin Calcium (Atorvastatin Calcium), 40 MG PO DAILY Cholecalciferol (Vitamin D3) (Vitamin D), 1 CAP PO DAILY, (Reported) Clindamycin HCl (Clindamycin HCl), 1 CAP PO Q8H Clopidogrel Bisulfate (Clopidogrel), 75 MG PO DAILY Cyanocobalamin (Vitamin B-12) (Vitamin B12), 500 MCG PO DAILY, (Reported) Docusate Sodium (Colace), 1 CAP PO Q12H Lisinopril (Lisinopril), 1 TAB PO DAILY, (Reported) Losartan/Hydrochlorothiazide (Losartan-Hctz 100-12.5 Mg Tab), 1 TAB PO DAILY, (Reported) Magnesium Oxide (Magnesium), 400 MG PO DAILY, (Reported) Metformin Hcl (Metformin Hcl), 1 TAB PO DAILY, (Reported) Metoprolol Tartrate (Metoprolol Tartrate), 1 TAB PO BID, (Reported) Topiramate (Topamax), 0.5 TAB PO BID, (Reported) Scheduled PRN Albuterol (Albuterol), 2 PUFFS IH Q4H PRN for SOB or wheezing, (Reported) Hydrocodone Bit/Acetaminophen 5/325 MG ([place] 5/325 MG), 1 TAB PO Q12H PRN PRN for pain, (Reported) Melatonin (Melatonin), 1 TAB PO HS PRN for sleep, (Reported) Ondansetron HCl (Ondansetron HCl), 1 TAB PO DAILY PRN for nausea/vomiting, (Reported) Trazodone HCl (Trazodone HCl), 1 TAB PO HS PRN for sleep, (Reported) Past Medical History Past Medical History: CVA/TIA/Stroke, Coronary Artery Disease, Diabetes, Chronic Back Pain Past Surgical History: other Drug Use: none Lives In: Home Review of Systems All Other Systems at this time: Reviewed and Negative Physical Exam Vital Signs: RN Vital Signs have been reviewed: Yes, Temperature: 97.1, Source: Temporal, Heart Rate: 60, Respiratory Rate: 16, BP: 91/61, Pulse Oximetry: 100, Weight: 80.500 Oxygen Flow Rate: 0 Physical Exam HEENT: PERRL, moist oral mucosa, EOMI no external signs trauma Pulmonary: No respiratory distress Cardiac: RRR, no murmur, rub or gallop GI: nondistended, soft, nontender, no guarding, no rebound MSK: no deformity Skin: w/d/i, no rash Neuro: alert, nonfocal Psych: normal affect Progress Results/Orders Reviewed/noted all lab results: Yes Results/Orders Orders - SARITHA WESTBROOK MD Ct Head (06/30/24 11:30) Completed Orders - SARITHA WESTBROOK MD Ct Head (06/30/24 11:30) Vital Signs 06/30/24 06/30/24 06/30/24 06/30/24 11:30 11:54 12:12 12:40 Temp 97.1 Pulse 60 60 60 Resp 18 16 16 B/P (MAP) 133/58 111/62 (78) 91/61 (71) Pulse Ox 98 97 100 O2 Flow Rate 0 0 EKG/XRAY/CT/US/VASC/MRI CT : Interpreted By: self CT: head With Contrast?: No Impression no acute mass, shift, or bleed Medical Decision Making Additional info obtained from: family Findings 83 year old female with ground level fall. Neuro intact, no external signs trauma, CT head negative. Will discharge after road test as patient does not wish to be admitted and adamantly refuses admission. Return precautions discussed. Differential Dx:Considerations: Include: Closed head injury, Fracture(s), Cerebral contusion, Abrasion(s), Contusion(s), Hematoma(s), Laceration(s) Departure Disposition: 01 HOME / SELF CARE / HOMELESS Impression: Primary Impression: Ground-level fall Condition: Stable Discharge Instructions: Fall Prevention in the Home, Adult Referrals: NO PRIMARY CARE PROVIDER (PCP) Education Educated: Patient Educated regarding: diagnosis, treatment, prognosis, need for follow up Signature Scribe Signature: . Attestation: . SARITHA WESTBROOK MD June 30, 2024 12:56
[2024-06-30 13:08] VITALS: BP 105/59; PULSE 61; RESP 16; O2SAT 98
== END 2024-06-30 13:13 | disposition home or self-care (01) ==
LOC: ER 11:28
DX: Z04.3 Encounter for examination and observation following other accident (principal); E11.9 Type 2 diabetes mellitus without complications; I25.10 Atherosclerotic heart disease of native coronary artery without angina pectoris; Z86.73 Personal history of transient ischemic attack (TIA), and cerebral infarction without residual deficits; Z88.2 Allergy status to sulfonamides; Z88.8 Allergy status to other drugs, medicaments and biological substances; W19.XXXA Unspecified fall, initial encounter; Y93.89 Activity, other specified; Y92.89 Other specified places as the place of occurrence of the external cause; Y99.8 Other external cause status
CPT/HCPCS: 70450; 99284